=== PATIENT | female | born 1945 | race Caucasian/White ===

== ENCOUNTER 2017-05-19 17:49 | Inpatient (IN) | payer MEDICARE, OTHER ==
[~2017-05-19] VITALS: Ht 177.8 cm; Wt 84.0 kg
[2017-05-19 18:27] LABS: BASOPHILS % (AUTO) 0.3 % (0-1); EOSINOPHILS # (AUTO) 0.2 X10'3 (0-0.9); EOSINOPHILS % (AUTO) 2.8 % (0-6); HEMATOCRIT 48.4 % (35.0-45.0); HEMOGLOBIN 16.3 g/dl (12.0-16.0); LYMPHOCYTES # (AUTO) 1.6 X10'3 (1.1-4.8); LYMPHOCYTES % (AUTO) 25.6 % (21-51); MEAN CORPUSCULAR HEMOGLOBIN 30.9 PG (27.0-31.0); MEAN CORPUSCULAR HGB CONC 33.8 % (33.0-36.5); MEAN CORPUSCULAR VOLUME 91.6 FL (78-98); MEAN PLATELET VOLUME 8.3 FL (7.4-10.4); MONOCYTES # (AUTO) 0.2 X10'3 (0-0.9); MONOCYTES % (AUTO) 3.9 % (2-12); NEUTROPHILS # (AUTO) 4.1 X10'3 (1.8-7.7); NEUTROPHILS % (AUTO) 67.4 % (42-75); PLATELET COUNT 141 X10'3 (140-440); RED BLOOD COUNT 5.28 X10'6 (4.20-5.60); WHITE BLOOD COUNT 6.1 X10'3 (4.5-11.0)
[2017-05-19] MEDS ORDERED: hydrALAZINE 20mg/ml inj. IV ONE (18:30)
[2017-05-19 18:40] LABS: PARTIAL THROMBOPLASTIN TIME 23 SECONDS (22-32)
[2017-05-19 18:55] LABS: ALANINE AMINOTRANSFERASE 16 U/L (12-78); ALBUMIN 3.7 G/DL (3.4-5.0); ALKALINE PHOSPHATASE 77 IU/L (46-116); ANION GAP 6 (8-16); ASPARTATE AMINO TRANSFERASE 22 U/L (10-37); BILIRUBIN,TOTAL 0.5 MG/DL (0.1-1.0); BLOOD UREA NITROGEN 10 MG/DL (7-18); BUN/CREATININE RATIO 11.1 (6.6-38.0); CALCIUM 8.5 MG/DL (8.5-10.1); CHLORIDE 105 MMOL/L (99-107); GLUCOSE 109 MG/DL (70-104); SODIUM 145 MMOL/L (135-145); TOTAL CARBON DIOXIDE 34.3 MMOL/L (24-32); TOTAL PROTEIN 7.3 G/DL (6.4-8.2); eGFR 62 ML/MIN
[2017-05-19 19:03] LABS: POTASSIUM 4.3 MMOL/L (3.5-5.1)
[2017-05-19 19:11] LABS: ABG BASE EXCESS 1.1 mmol/L (-2.0-3.0); ABG HCO3 26.1 mmol/L (22.0-26.0); ABG OXYGEN SATURATION 94.2 % (95-98); ABG PCO2 (T) 43.2 mmHg (32.0-45.0); ABG PH (T) 7.401 (7.350-7.450); ABG PO2 (T) 70.6 mmHg (83-108); ALLEN'S TEST Positive; FCOHb 0.7 % (0.5-1.5); FLOW 4 L/min; FMetHb 0.3 % (0.3-1.12); FO2Hb 93.3 % (94-100); PATIENT TEMPERATURE 37.3; TOTAL HEMOGLOBIN 16.4 G/dl (12.0-16.0)
[2017-05-19] MEDS ORDERED: iohexol 350MG/ML 100ml bottle IV ONE (19:39)
[2017-05-19] MEDS ORDERED: ondansetron/PF 4mg/2ml inj IV ONE (19:40)
[2017-05-19 20:12] LABS: CLARITY,URINE CLEAR (Clear); COLOR,URINE YELLOW (Yellow); GLUCOSE, URINE NEGATIVE (Neg); KETONES,URINE NEGATIVE (Neg); LEUKOCYTE ESTERASE ,URINE NEGATIVE (Neg); NITRITES, URINE NEGATIVE (Neg); OCCULT BLOOD,URINE TRACE-INTACT (Neg); PH,URINE 6.5 (4.8-8.0); PROTEIN,URINE NEGATIVE (Neg); UROBILINOGEN,URINE 0.2 E.U/dL (0.2-1.0)
[2017-05-19 20:17] LABS: UA COLLECTION TYPE CLN CATCH MIDSTREAM
[2017-05-19 20:18] LABS: BACTERIA,URINE FEW /HPF (Neg); RBC,URINE 0-2 /HPF (0-2); SQUAMOUS EPITHELIAL CELL,UR FEW /LPF (FEW); WBC,URINE NONE SEEN /HPF (0-4)
[2017-05-19 20:30] LABS: URINE AMPHETAMINE SCREEN NEGATIVE (Neg); URINE BARBITUATE SCREEN NEGATIVE (Neg); URINE BENZODIAZEPINES SCREEN NEGATIVE (Neg); URINE CANNABINOID SCREEN NEGATIVE (Neg); URINE COCAINE SCREEN NEGATIVE (Neg); URINE METHADONE SCREEN NEGATIVE (Neg); URINE OPIATE SCREEN POSITIVE (Neg); URINE PHENCYCLIDINE SCREEN NEGATIVE (Neg)
[2017-05-19] MEDS ORDERED: normal saline 1000ML IV soln IVB ONE (20:50)
[2017-05-19] MEDS ORDERED: temazepam 15mg capsule PO PRN (21:00)
[2017-05-19] MEDS ORDERED: CARB1TAB43 PO (22:09)
[2017-05-19] MEDS ORDERED: IBUP-1984 PO (22:09)
[2017-05-19] MEDS ORDERED: DIVA500T9 PO (22:09)
[2017-05-19] MEDS ORDERED: OLAN5TAB5 PO (22:09)
[2017-05-19] MEDS ORDERED: HYDR-565 PO (22:09)
[2017-05-19] MEDS ORDERED: FLUO20CA39 PO (22:09)
[2017-05-19] MEDS ORDERED: METO-395 PO (22:09)
[2017-05-19] MEDS ORDERED: enoxaparin 100mg/ml syringe SUBCUT ONE (22:15)
[2017-05-19] MEDS ORDERED: aspirin 81mg tab.chew PO ONE (22:15)
[2017-05-19] MEDS ORDERED: magnesium hydroxide 30ml (MOM) UD suspension PO PRN (23:40)
[2017-05-19] MEDS ORDERED: morphine 2 MG/ML inj. syringe IV PRN (23:40)
[2017-05-19] MEDS ORDERED: magnesium 2GM in 50ml NS 50 ML IV PRN (23:40)
[2017-05-19] MEDS ORDERED: mag hydrox/Alum hydrox/simeth 30ml oral suspension PO PRN (23:40)
[2017-05-19] MEDS ORDERED: magnesium Cl slow-release 64mg tablet PO PRN (23:40)
[2017-05-19] MEDS ORDERED: potassium Cl 20 mEq SR tablet PO PRN ×2 (23:40)
[2017-05-19] MEDS ORDERED: magnesium 4gm in 100ml NS 100 ML IV PRN (23:40)
[2017-05-19] MEDS ORDERED: acetaminophen 325mg tablet PO PRN (23:40)
[2017-05-19] MEDS ORDERED: potassium Cl 40MEQ/NS 500ml 500 ML IV PRN ×2 (23:40)
[2017-05-20 01:00] VITALS: BP 121/64
[2017-05-20] MEDS: normal saline 1000ml 1,000 ML IV SCH ×2 (01:15→13:47)
[2017-05-20] MEDS: ondansetron/PF 4mg/2ml inj IV PRN (04:11)
[2017-05-20 06:19] LABS: BASOPHILS % (AUTO) 0.2 % (0-1); EOSINOPHILS % (AUTO) 0.4 % (0-6); HEMATOCRIT 40.6 % (35.0-45.0); LYMPHOCYTES # (AUTO) 1.3 X10'3 (1.1-4.8); LYMPHOCYTES % (AUTO) 10.3 % (21-51); MEAN CORPUSCULAR HEMOGLOBIN 31.4 PG (27.0-31.0); MEAN CORPUSCULAR HGB CONC 34.5 % (33.0-36.5); MEAN CORPUSCULAR VOLUME 91.1 FL (78-98); MEAN PLATELET VOLUME 8.3 FL (7.4-10.4); MONOCYTES % (AUTO) 8.1 % (2-12); NEUTROPHILS # (AUTO) 10.1 X10'3 (1.8-7.7); PLATELET COUNT 128 X10'3 (140-440); RED BLOOD COUNT 4.46 X10'6 (4.20-5.60); RED CELL DISTRIBUTION WIDTH 13.1 % (11.5-14.5); WHITE BLOOD COUNT 12.4 X10'3 (4.5-11.0)
[2017-05-20 06:49] LABS: ALANINE AMINOTRANSFERASE 28 U/L (12-78); ALBUMIN 2.9 G/DL (3.4-5.0); ALBUMIN/GLOBULIN RATIO 0.9 (1.1-1.5); ALKALINE PHOSPHATASE 44 IU/L (46-116); ANION GAP 6 (8-16); ASPARTATE AMINO TRANSFERASE 22 U/L (10-37); BILIRUBIN,TOTAL 0.6 MG/DL (0.1-1.0); BLOOD UREA NITROGEN 10 MG/DL (7-18); BUN/CREATININE RATIO 12.5 (6.6-38.0); CALCIUM 7.8 MG/DL (8.5-10.1); CHLORIDE 107 MMOL/L (99-107); CHOL/HDL RATIO 1.9 (0.00-4.99); CHOLESTEROL 105 MG/DL (0-200); GLUCOSE 109 MG/DL (70-104); HDL CHOLESTEROL 54 MG/DL (35-60); LDL CHOLESTEROL 50 MG/DL (50-100); MAGNESIUM 1.4 MG/DL (1.5-2.4); POTASSIUM 4.4 MMOL/L (3.5-5.1); SODIUM 143 MMOL/L (135-145); TOTAL CARBON DIOXIDE 29.9 MMOL/L (24-32); TRIGLYCERIDES 69 MG/DL (20-135); eGFR 71 ML/MIN
[2017-05-20 07:07] VITALS: BP_SYST 118; BP_SYST 119; BP_DIAS 45; BP_DIAS 63
[2017-05-20] MEDS: FLUoxetine 20mg capsule PO SCH (07:45)
[2017-05-20] MEDS: metoprolol succinate 25mg (24-HOUR) SR. Tablet PO SCH (07:45)
[2017-05-20] MEDS: OLANZapine 5mg rapidly disint. tablet PO SCH (07:46)
[2017-05-20] MEDS: carbidopa/levodopa 10/100mg tab PO SCH ×3 (07:50→20:19)
[2017-05-20] MEDS: enoxaparin 80mg/0.8ml syringe SUBCUT SCH ×2 (07:52→20:19)
[2017-05-20] MEDS: K and/or MAG REPLACEMENT MC SCH (08:18)
[2017-05-20] MEDS: morphine 2 MG/ML inj. syringe IV PRN ×2 (08:46→13:16)
[2017-05-20 11:00] VITALS: BP 121/67
[2017-05-20] MEDS ORDERED: aminophylline 250mg/10ml inj. IV PRN (15:10)
[2017-05-20] MEDS ORDERED: metoprolol tartrate 1mg/ml inj IV PRN (15:10)
[2017-05-20] MEDS ORDERED: nitroGLYCERIN 0.4mg SUBLingual tab SL PRN (15:10)
[2017-05-20] MEDS ORDERED: nitroGLYCERIN 0.2mg/hour patch TD ONE (15:10)
[2017-05-20] MEDS ORDERED: regadenoson 0.4mg/5ml syringe IV ONE (15:10)
[2017-05-20 16:25] VITALS: BP 126/68
[2017-05-20 19:00] VITALS: BP 148/75
[2017-05-20] MEDS: benzocaine/menthol oral lozeng 1 EACH BOX MM PRN (20:20)
[2017-05-20] MEDS: divalproex sod 250mg ER (24-hour) tablet PO SCH (20:20)
[2017-05-20 23:00] VITALS: BP 133/70
[2017-05-21] MEDS: ondansetron/PF 4mg/2ml inj IV PRN (00:14)
[2017-05-21] MEDS: guaiFENesin/DM oral syrup 5 ML CUP PO PRN ×3 (00:21→17:39)
[2017-05-21 03:00] VITALS: BP 135/77
[2017-05-21 05:22] LABS: BASOPHILS % (AUTO) 0.1 % (0-1); EOSINOPHILS # (AUTO) 0.1 X10'3 (0-0.9); HEMATOCRIT 37.7 % (35.0-45.0); HEMOGLOBIN 12.9 g/dl (12.0-16.0); LYMPHOCYTES # (AUTO) 1.6 X10'3 (1.1-4.8); LYMPHOCYTES % (AUTO) 14.6 % (21-51); MEAN CORPUSCULAR HEMOGLOBIN 31.3 PG (27.0-31.0); MEAN CORPUSCULAR HGB CONC 34.2 % (33.0-36.5); MEAN CORPUSCULAR VOLUME 91.6 FL (78-98); MEAN PLATELET VOLUME 8.8 FL (7.4-10.4); MONOCYTES # (AUTO) 0.8 X10'3 (0-0.9); MONOCYTES % (AUTO) 7.2 % (2-12); NEUTROPHILS # (AUTO) 8.5 X10'3 (1.8-7.7); NEUTROPHILS % (AUTO) 77.1 % (42-75); PLATELET COUNT 117 X10'3 (140-440); RED BLOOD COUNT 4.12 X10'6 (4.20-5.60)
[2017-05-21 06:08] LABS: ALANINE AMINOTRANSFERASE 22 U/L (12-78); ALBUMIN 2.7 G/DL (3.4-5.0); ALBUMIN/GLOBULIN RATIO 0.8 (1.1-1.5); ALKALINE PHOSPHATASE 58 IU/L (46-116); ANION GAP 5 (8-16); ASPARTATE AMINO TRANSFERASE 19 U/L (10-37); BILIRUBIN,TOTAL 0.8 MG/DL (0.1-1.0); BLOOD UREA NITROGEN 8 MG/DL (7-18); CALCIUM 8.3 MG/DL (8.5-10.1); CHLORIDE 106 MMOL/L (99-107); GLUCOSE 100 MG/DL (70-104); MAGNESIUM 1.8 MG/DL (1.5-2.4); POTASSIUM 3.9 MMOL/L (3.5-5.1); SODIUM 140 MMOL/L (135-145); TOTAL CARBON DIOXIDE 29.3 MMOL/L (24-32); eGFR 71 ML/MIN
[2017-05-21 06:59] VITALS: BP 145/78
[2017-05-21] MEDS: enoxaparin 80mg/0.8ml syringe SUBCUT SCH ×2 (08:00→20:00)
[2017-05-21] MEDS: carbidopa/levodopa 10/100mg tab PO SCH ×3 (08:01→20:04)
[2017-05-21] MEDS: OLANZapine 5mg rapidly disint. tablet PO SCH (08:01)
[2017-05-21] MEDS: K and/or MAG REPLACEMENT MC SCH (08:01)
[2017-05-21] MEDS: metoprolol succinate 25mg (24-HOUR) SR. Tablet PO SCH (08:01)
[2017-05-21] MEDS: FLUoxetine 20mg capsule PO SCH (08:01)
[2017-05-21] MEDS ORDERED: pneumococcal 23-VAL P-sac vacc 25 mcg/0.5ml vial IMVAC ONE (10:00)
[2017-05-21 11:00] VITALS: BP 145/73
[2017-05-21 15:00] VITALS: BP 159/90
[2017-05-21 19:00] VITALS: BP 149/78
[2017-05-21] MEDS: divalproex sod 250mg ER (24-hour) tablet PO SCH (20:04)
[2017-05-21 23:00] VITALS: BP 133/76
[2017-05-22 03:00] VITALS: BP 152/81
[2017-05-22 05:29] LABS: BASOPHILS % (AUTO) 0.2 % (0-1); EOSINOPHILS # (AUTO) 0.2 X10'3 (0-0.9); EOSINOPHILS % (AUTO) 2.5 % (0-6); HEMATOCRIT 39.3 % (35.0-45.0); HEMOGLOBIN 13.6 g/dl (12.0-16.0); LYMPHOCYTES # (AUTO) 1.4 X10'3 (1.1-4.8); LYMPHOCYTES % (AUTO) 18.1 % (21-51); MEAN CORPUSCULAR HEMOGLOBIN 31.3 PG (27.0-31.0); MEAN CORPUSCULAR HGB CONC 34.5 % (33.0-36.5); MEAN CORPUSCULAR VOLUME 90.8 FL (78-98); MEAN PLATELET VOLUME 8.6 FL (7.4-10.4); MONOCYTES # (AUTO) 0.5 X10'3 (0-0.9); MONOCYTES % (AUTO) 6.7 % (2-12); NEUTROPHILS # (AUTO) 5.7 X10'3 (1.8-7.7); NEUTROPHILS % (AUTO) 72.5 % (42-75); PLATELET COUNT 119 X10'3 (140-440); RED BLOOD COUNT 4.33 X10'6 (4.20-5.60); RED CELL DISTRIBUTION WIDTH 12.9 % (11.5-14.5); WHITE BLOOD COUNT 7.9 X10'3 (4.5-11.0)
[2017-05-22 06:07] LABS: ALANINE AMINOTRANSFERASE 13 U/L (12-78); ALBUMIN 2.7 G/DL (3.4-5.0); ALBUMIN/GLOBULIN RATIO 0.8 (1.1-1.5); ALKALINE PHOSPHATASE 58 IU/L (46-116); ANION GAP 8 (8-16); ASPARTATE AMINO TRANSFERASE 13 U/L (10-37); BILIRUBIN,TOTAL 0.6 MG/DL (0.1-1.0); BLOOD UREA NITROGEN 6 MG/DL (7-18); BUN/CREATININE RATIO 8.6 (6.6-38.0); CALCIUM 8.2 MG/DL (8.5-10.1); CHLORIDE 107 MMOL/L (99-107); GLUCOSE 92 MG/DL (70-104); POTASSIUM 3.8 MMOL/L (3.5-5.1); SODIUM 144 MMOL/L (135-145); TOTAL CARBON DIOXIDE 28.8 MMOL/L (24-32); TOTAL PROTEIN 6.2 G/DL (6.4-8.2); eGFR 82 ML/MIN
[2017-05-22 07:00] VITALS: BP 158/83
[2017-05-22] MEDS: enoxaparin 80mg/0.8ml syringe SUBCUT SCH ×2 (08:00→20:00)
[2017-05-22] MEDS: FLUoxetine 20mg capsule PO SCH (08:21)
[2017-05-22] MEDS: OLANZapine 5mg rapidly disint. tablet PO SCH (08:21)
[2017-05-22] MEDS: metoprolol succinate 25mg (24-HOUR) SR. Tablet PO SCH (08:21)
[2017-05-22] MEDS: carbidopa/levodopa 10/100mg tab PO SCH ×3 (08:21→20:11)
[2017-05-22] MEDS: K and/or MAG REPLACEMENT MC SCH (08:53)
[2017-05-22 11:00] VITALS: BP 137/72
[2017-05-22] MEDS: ipratropium 0.5 MG/2.5ML nebule IH SCH ×2 (16:00→20:56)
[2017-05-22 17:41] VITALS: BP 164/92
[2017-05-22 19:00] VITALS: BP 164/78
[2017-05-22] MEDS: divalproex sod 250mg ER (24-hour) tablet PO SCH (20:11)
[2017-05-22] MEDS: guaiFENesin/DM oral syrup 5 ML CUP PO PRN (21:43)
[2017-05-22 23:00] VITALS: BP 161/84
[2017-05-23] VITALS (8 sets, daily range): BP systolic 145–194; BP diastolic 76–96
[2017-05-23] MEDS: ipratropium 0.5 MG/2.5ML nebule IH SCH ×6 (00:22→20:10)
[2017-05-23 05:23] LABS: BASOPHILS % (AUTO) 0.3 % (0-1); EOSINOPHILS # (AUTO) 0.2 X10'3 (0-0.9); EOSINOPHILS % (AUTO) 3.4 % (0-6); HEMATOCRIT 40.4 % (35.0-45.0); HEMOGLOBIN 14.2 g/dl (12.0-16.0); LYMPHOCYTES # (AUTO) 1.5 X10'3 (1.1-4.8); MEAN CORPUSCULAR HEMOGLOBIN 31.4 PG (27.0-31.0); MEAN CORPUSCULAR VOLUME 89.7 FL (78-98); MEAN PLATELET VOLUME 8.2 FL (7.4-10.4); MONOCYTES # (AUTO) 0.5 X10'3 (0-0.9); MONOCYTES % (AUTO) 8.5 % (2-12); NEUTROPHILS # (AUTO) 3.5 X10'3 (1.8-7.7); NEUTROPHILS % (AUTO) 61.8 % (42-75); PLATELET COUNT 161 X10'3 (140-440); RED CELL DISTRIBUTION WIDTH 12.7 % (11.5-14.5); WHITE BLOOD COUNT 5.7 X10'3 (4.5-11.0)
[2017-05-23 05:56] LABS: ALANINE AMINOTRANSFERASE 17 U/L (12-78); ALBUMIN 2.8 G/DL (3.4-5.0); ALBUMIN/GLOBULIN RATIO 0.8 (1.1-1.5); ALKALINE PHOSPHATASE 55 IU/L (46-116); ANION GAP 7 (8-16); ASPARTATE AMINO TRANSFERASE 15 U/L (10-37); BILIRUBIN,TOTAL 0.5 MG/DL (0.1-1.0); BLOOD UREA NITROGEN 6 MG/DL (7-18); BUN/CREATININE RATIO 8.6 (6.6-38.0); CALCIUM 8.5 MG/DL (8.5-10.1); CHLORIDE 107 MMOL/L (99-107); GLUCOSE 93 MG/DL (70-104); POTASSIUM 3.4 MMOL/L (3.5-5.1); SODIUM 144 MMOL/L (135-145); TOTAL CARBON DIOXIDE 30.3 MMOL/L (24-32); TOTAL PROTEIN 6.4 G/DL (6.4-8.2); eGFR 82 ML/MIN
[2017-05-23] MEDS: OLANZapine 5mg rapidly disint. tablet PO SCH (08:43)
[2017-05-23] MEDS: carbidopa/levodopa 10/100mg tab PO SCH ×3 (08:44→21:22)
[2017-05-23] MEDS: FLUoxetine 20mg capsule PO SCH (08:44)
[2017-05-23] MEDS: metoprolol succinate 25mg (24-HOUR) SR. Tablet PO SCH ×2 (08:44→19:18)
[2017-05-23] MEDS: K and/or MAG REPLACEMENT MC SCH (08:45)
[2017-05-23] MEDS: enoxaparin 80mg/0.8ml syringe SUBCUT SCH (08:45)
[2017-05-23] MEDS: guaiFENesin/DM oral syrup 5 ML CUP PO PRN ×2 (08:47→17:15)
[2017-05-23] MEDS ORDERED: potassium Cl 20 mEq SR tablet PO PRN ×2 (10:30)
[2017-05-23] MEDS ORDERED: potassium Cl 40MEQ/NS 500ml 500 ML IV PRN ×2 (10:30)
[2017-05-23] MEDS: vitamin D (cholecalciferol) 1,000 unit tablet PO SCH (12:42)
[2017-05-23] MEDS ORDERED: metoprolol succinate 25mg (24-HOUR) SR. Tablet PO ONE (12:45)
[2017-05-23] MEDS: lisinopril 10 MG tablet PO SCH (15:24)
[2017-05-23] MEDS: clonazePAM 1mg tablet PO SCH ×2 (17:40→21:22)
[2017-05-23] MEDS: HYDROcodone/acetaminophen 5mg/325mg tablet PO PRN (17:41)
[2017-05-23] MEDS: metoprolol tartrate 1mg/ml inj IV SCH ×3 (18:30→19:00)
[2017-05-23] MEDS: benzocaine/menthol oral lozeng 1 EACH BOX MM PRN (19:17)
[2017-05-23] MEDS ORDERED: methylPREDNISolone sod succ 125mg/2ml vial IV ONE (21:05)
[2017-05-23] MEDS ORDERED: furosemide 40mg/4ml inj IV ONE (21:05)
[2017-05-23] MEDS: divalproex sod 250mg ER (24-hour) tablet PO SCH (21:23)
[2017-05-24] MEDS: ipratropium 0.5 MG/2.5ML nebule IH SCH ×7 (00:07→23:20)
[2017-05-24] MEDS: HYDROcodone/acetaminophen 5mg/325mg tablet PO PRN ×3 (01:12→20:35)
[2017-05-24] MEDS: guaiFENesin/DM oral syrup 5 ML CUP PO PRN ×3 (01:12→21:58)
[2017-05-24 03:00] VITALS: BP 128/77
[2017-05-24 05:11] LABS: BASOPHILS % (AUTO) 0.4 % (0-1); EOSINOPHILS % (AUTO) 0.9 % (0-6); HEMATOCRIT 43.5 % (35.0-45.0); HEMOGLOBIN 15.3 g/dl (12.0-16.0); LYMPHOCYTES # (AUTO) 0.9 X10'3 (1.1-4.8); LYMPHOCYTES % (AUTO) 17.8 % (21-51); MEAN CORPUSCULAR HEMOGLOBIN 31.4 PG (27.0-31.0); MEAN CORPUSCULAR HGB CONC 35.1 % (33.0-36.5); MEAN CORPUSCULAR VOLUME 89.6 FL (78-98); MEAN PLATELET VOLUME 7.5 FL (7.4-10.4); MONOCYTES # (AUTO) 0.1 X10'3 (0-0.9); MONOCYTES % (AUTO) 1.9 % (2-12); NEUTROPHILS # (AUTO) 3.8 X10'3 (1.8-7.7); PLATELET COUNT 198 X10'3 (140-440); RED BLOOD COUNT 4.86 X10'6 (4.20-5.60); RED CELL DISTRIBUTION WIDTH 12.7 % (11.5-14.5); WHITE BLOOD COUNT 4.8 X10'3 (4.5-11.0)
[2017-05-24 05:29] LABS: ALANINE AMINOTRANSFERASE 16 U/L (12-78); ALBUMIN 3.3 G/DL (3.4-5.0); ALBUMIN/GLOBULIN RATIO 0.8 (1.1-1.5); ALKALINE PHOSPHATASE 64 IU/L (46-116); ANION GAP 10 (8-16); ASPARTATE AMINO TRANSFERASE 14 U/L (10-37); BILIRUBIN,TOTAL 0.4 MG/DL (0.1-1.0); BLOOD UREA NITROGEN 13 MG/DL (7-18); BUN/CREATININE RATIO 16.3 (6.6-38.0); CALCIUM 9.3 MG/DL (8.5-10.1); CHLORIDE 104 MMOL/L (99-107); GLUCOSE 160 MG/DL (70-104); MAGNESIUM 1.9 MG/DL (1.5-2.4); SODIUM 143 MMOL/L (135-145); TOTAL CARBON DIOXIDE 29.3 MMOL/L (24-32); TOTAL PROTEIN 7.4 G/DL (6.4-8.2); eGFR 71 ML/MIN
[2017-05-24 06:00] VITALS: BP 119/69
[2017-05-24] MEDS ORDERED: methylPREDNISolone sod succ 125mg/2ml vial IV ONE (08:00)
[2017-05-24] MEDS: K and/or MAG REPLACEMENT MC SCH (08:00)
[2017-05-24] MEDS ORDERED: metoprolol succinate 25mg (24-HOUR) SR. Tablet PO SCH (08:00)
[2017-05-24] MEDS: OLANZapine 5mg rapidly disint. tablet PO SCH (09:17)
[2017-05-24] MEDS: lisinopril 10 MG tablet PO SCH (09:17)
[2017-05-24] MEDS: carbidopa/levodopa 10/100mg tab PO SCH ×3 (09:17→20:35)
[2017-05-24] MEDS: vitamin D (cholecalciferol) 1,000 unit tablet PO SCH (09:18)
[2017-05-24] MEDS: clonazePAM 1mg tablet PO SCH ×2 (09:18→20:34)
[2017-05-24] MEDS: metoprolol succinate 25mg (24-HOUR) SR. Tablet PO SCH ×2 (09:18→20:35)
[2017-05-24] MEDS: FLUoxetine 20mg capsule PO SCH (09:18)
[2017-05-24] MEDS: enoxaparin 40mg/0.4ml syringe SUBCUT SCH (09:19)
[2017-05-24] MEDS: furosemide 20 MG/2 ML vial IV SCH ×2 (09:19→20:36)
[2017-05-24] MEDS: methylPREDNISolone sod succ 125mg/2ml vial IV SCH ×2 (09:19→20:37)
[2017-05-24 09:23] VITALS: BP 130/75
[2017-05-24 12:00] VITALS: BP 130/76
[2017-05-24 19:00] VITALS: BP 125/71
[2017-05-24 20:14] LABS: D-DIMER 0.53 MG/L FEU (0-0.50)
[2017-05-24] MEDS: divalproex sod 250mg ER (24-hour) tablet PO SCH (20:34)
[2017-05-24] MEDS: morphine 2 MG/ML inj. syringe IV PRN (23:08)
[2017-05-24] MEDS: benzocaine/menthol oral lozeng 1 EACH BOX MM PRN (23:16)
[2017-05-25 02:00] VITALS: BP 110/55
[2017-05-25] MEDS: ipratropium 0.5 MG/2.5ML nebule IH SCH ×4 (02:38→15:23)
[2017-05-25 06:00] VITALS: BP 112/64
[2017-05-25] MEDS: clonazePAM 1mg tablet PO SCH (07:52)
[2017-05-25] MEDS: carbidopa/levodopa 10/100mg tab PO SCH ×2 (07:53→13:03)
[2017-05-25] MEDS: FLUoxetine 20mg capsule PO SCH (07:53)
[2017-05-25] MEDS: lisinopril 10 MG tablet PO SCH (07:53)
[2017-05-25] MEDS: vitamin D (cholecalciferol) 1,000 unit tablet PO SCH (07:53)
[2017-05-25] MEDS: OLANZapine 5mg rapidly disint. tablet PO SCH (07:53)
[2017-05-25] MEDS: metoprolol succinate 25mg (24-HOUR) SR. Tablet PO SCH (07:54)
[2017-05-25] MEDS: enoxaparin 40mg/0.4ml syringe SUBCUT SCH (07:55)
[2017-05-25] MEDS: furosemide 20 MG/2 ML vial IV SCH (07:55)
[2017-05-25] MEDS: methylPREDNISolone sod succ 125mg/2ml vial IV SCH (07:56)
[2017-05-25] MEDS: K and/or MAG REPLACEMENT MC SCH (08:00)
[2017-05-25] MEDS: HYDROcodone/acetaminophen 5mg/325mg tablet PO PRN ×2 (08:24→13:08)
[2017-05-25 11:00] VITALS: BP 119/61
[2017-05-25] MEDS ORDERED: HYDR-569 PO (11:39)
[2017-05-25] MEDS: guaiFENesin/DM oral syrup 5 ML CUP PO PRN (13:08)
[2017-05-25 15:00] VITALS: BP 133/67
== END 2017-05-25 17:12 | disposition home or self-care (01) | DRG 280 ==
LOC: ER 17:50 → ED HOLD 23:40 → PCU 3S 05-20 00:45
PROVIDERS: ADMIT Internal Medicine; ATTEND Internal Medicine
PROC: BW241ZZ Computerized Tomography (CT Scan) of Chest and Abdomen using Low Osmolar Contrast (ICD-10-PCS; principal; 2017-05-19)
DX: I21.4 Non-ST elevation (NSTEMI) myocardial infarction (principal); G92 Toxic encephalopathy; E87.2 Acidosis; G20 Parkinson's disease; D75.1 Secondary polycythemia; E66.01 Morbid (severe) obesity due to excess calories; I71.2 Thoracic aortic aneurysm, without rupture; R09.02 Hypoxemia; E04.1 Nontoxic single thyroid nodule; I16.0 Hypertensive urgency; D72.829 Elevated white blood cell count, unspecified; F03.90 Unspecified dementia, unspecified severity, without behavioral disturbance, psychotic disturbance, mood disturbance, and anxiety; G89.29 Other chronic pain; F31.9 Bipolar disorder, unspecified; I07.1 Rheumatic tricuspid insufficiency; I10 Essential (primary) hypertension; I71.4 Abdominal aortic aneurysm, without rupture; J45.909 Unspecified asthma, uncomplicated; K58.9 Irritable bowel syndrome, unspecified; T40.605A Adverse effect of unspecified narcotics, initial encounter; Z98.1 Arthrodesis status; Z79.1 Long term (current) use of non-steroidal anti-inflammatories (NSAID); Z79.899 Other long term (current) drug therapy; Z85.3 Personal history of malignant neoplasm of breast; Z86.79 Personal history of other diseases of the circulatory system; Z87.891 Personal history of nicotine dependence; Z92.3 Personal history of irradiation; Y92.89 Other specified places as the place of occurrence of the external cause; Z68.26 Body mass index [BMI] 26.0-26.9, adult
CPT/HCPCS: 36415; 36600; 70450; 71045; 71046; 71275; 76536; 80053; 80061; 80305; 81001; 82140; 82803; 83605; 83735; 83880; 84132; 84439; 84443; 84480; 84484; 85018; 85025; 85379; 85610; 85730; 87040; 90732; 93005; 93306; 94640; 94760; 96374; 96375; 97162; 97530; 99285; J0360; J1650; J1940; J2270; J2405; J2930; J3480; J3490; J7030; Q9967

== ENCOUNTER 2020-03-19 10:45 | Emergency (ER) | payer MEDICARE ==
[~2020-03-19] VITALS: Ht 172.7 cm; Wt 120.7 kg
[~2020-03-19 10:45] MED LIST: CARB1TAB43 PO; DIVA500T9 PO; FLUO20CA39 PO; HYDR-4383 PO; METO-395 PO; OLAN5TAB5 PO
[2020-03-19 12:10] LABS: BASOPHILS % (AUTO) 0.8 % (0-1); EOSINOPHILS # (AUTO) 0.2 X10'3 (0-0.9); EOSINOPHILS % (AUTO) 3.2 % (0-6); HEMATOCRIT 44.1 % (35.0-45.0); HEMOGLOBIN 15.2 g/dl (12.0-16.0); LYMPHOCYTES # (AUTO) 1.6 X10'3 (1.1-4.8); LYMPHOCYTES % (AUTO) 32.8 % (21-51); MEAN CORPUSCULAR HGB CONC 34.5 g/dL (33.0-36.5); MEAN CORPUSCULAR VOLUME 89.9 FL (78-98); MEAN PLATELET VOLUME 8.5 FL (7.4-10.4); MONOCYTES # (AUTO) 0.4 X10'3 (0-0.9); MONOCYTES % (AUTO) 8.9 % (2-12); NEUTROPHILS # (AUTO) 2.7 X10'3 (1.8-7.7); NEUTROPHILS % (AUTO) 54.3 % (42-75); PLATELET COUNT 154 X10'3 (140-440); RED BLOOD COUNT 4.91 X10'6 (4.20-5.60); RED CELL DISTRIBUTION WIDTH 13.1 % (11.5-14.5)
[2020-03-19 12:19] LABS: ALANINE AMINOTRANSFERASE 20 U/L (12-78); ALBUMIN 3.6 G/DL (3.4-5.0); ALBUMIN/GLOBULIN RATIO 1.1 (1.1-1.5); ALKALINE PHOSPHATASE 69 IU/L (46-116); ANION GAP 8 (8-16); ASPARTATE AMINO TRANSFERASE 22 U/L (10-37); BILIRUBIN,TOTAL 0.8 MG/DL (0.1-1.0); BLOOD UREA NITROGEN 10 MG/DL (7-18); BUN/CREATININE RATIO 10.3 (6.6-38.0); CALCIUM 9.1 MG/DL (8.5-10.1); CHLORIDE 106 MMOL/L (99-107); CREATININE 0.97 MG/DL (0.40-0.90); GLUCOSE 102 MG/DL (70-104); POTASSIUM 4.4 MMOL/L (3.5-5.1); SODIUM 142 MMOL/L (135-145); TOTAL CARBON DIOXIDE 28.4 MMOL/L (24-32); TOTAL PROTEIN 6.8 G/DL (6.4-8.2); eGFR 56 ML/MIN
[2020-03-19 12:40] VITALS: BP 165/80
== END 2020-03-19 12:41 | disposition home or self-care (01) ==
LOC: ER 10:45
DX: R42 Dizziness and giddiness (principal); R11.10 Vomiting, unspecified; Z79.899 Other long term (current) drug therapy
CPT/HCPCS: 36415; 71045; 80053; 83880; 84484; 85025; 93005; 99285